=== PATIENT | male | born 1975 ===

== ENCOUNTER 2017-06-08 05:17 | Day surgery (SDC) | payer BC ==
[2017-06-07 10:35] LABS: HEMATOCRIT 40.9 % (42.0-54.0); MCH 26.5 pg (26.0-34.0); MCHC 31.8 g/dL (31.0-37.0); MCV 83.3 fL (80.0-100.0); MEAN PLATELET VOLUME 9.9 fL (7.4-10.4); RBC 4.91 10x6/uL (4.20-6.10); RDW 15.8 % (11.5-14.5); WBC 4.2 10x3/uL (4.8-10.8)
[~2017-06-08] VITALS: Ht 170.2 cm; Wt 74.4 kg
[~2017-06-08 05:17] MED LIST: NORVASC2.5 MG PO
[2017-06-08 06:38] VITALS: BP 105/73; Ht 170.2 cm; Wt 74.4 kg
[2017-06-08] MEDS ORDERED: HYDROCODON-ACE1 EAC7 PO (09:41)
[2017-06-08] MEDS ORDERED: FLOMAX0.4 MG PO (09:44)
== END 2017-06-08 13:30 | disposition home or self-care (01) ==
LOC: D.OPS 05:17 → D.PAN 08:00 → D.OPS 08:00
PROVIDERS: Anesthesiology
DX: K40.20 Bilateral inguinal hernia, without obstruction or gangrene, not specified as recurrent (principal); I10 Essential (primary) hypertension; Z01.812 Encounter for preprocedural laboratory examination